=== PATIENT | male | born 1990 | race Caucasian/White ===

== ENCOUNTER 2020-11-04 01:48 | Inpatient (IN) | payer OTHER ==
[2020-11-04] MEDS ORDERED: FAMOTIDINE 20 MG/50 ML IVPB 20 MG/50 ML MG IVPB ONE (03:38)
[2020-11-04] MEDS ORDERED: LIDOCAINE VISCOUS 2% ORAL/TOP 20 ML UNIT-DOSE CUP MM ONE ×2 (03:38)
[2020-11-04] MEDS ORDERED: MAG HYDROX/AL HYDROX/SIMETH 30 ML UNIT-DOSE CUP PO ONE (03:38)
[2020-11-04] MEDS ORDERED: ACETAMINOPHEN 1000 MG/100 ML VIAL (NON FORMULARY) IVPB ONE (03:39)
[2020-11-04] MEDS ORDERED: LIDOCAINE VISCOUS 2% ORAL/TOP 20 ML UNIT-DOSE CUP ONE (04:31)
[2020-11-04] MEDS: SUCRALFATE 1 GM TABLET (FP) PO SCH ×3 (05:01→21:09)
[2020-11-04 05:13] LABS: BASO % 0.4 % (0-2.0); EOS % 0.1 % (0-4.5); HEMATOCRIT 43.2 % (35.4-49); HEMOGLOBIN 14.6 GM/dL (11.7-16.9); LYMPH % 13.4 % (8-40); MCH 28.1 pg (25.7-33.7); MCHC 33.9 g/dl (32.0-35.9); MEAN PLT VOLUME 8.6 fl (7.5-11.1); MONO % 4.6 % (3.8-10.2); NEUT % 81.5 % (42.8-82.8); PLATELET COUNT 263 K/MM3 (134-434); RBC 5.21 M/mm3 (4.00-5.60); RDW 13.4 % (11.9-15.9); WHITE BLOOD COUNT 8.9 K/mm3 (4.0-10.0)
[2020-11-04 05:30] LABS: CHLORIDE 103 mmol/L (98-107); SODIUM 138 mmol/L (136-145)
[2020-11-04 05:32] LABS: ALBUMIN 3.7 g/dl (3.4-5.0); ANION GAP 6 MMOL/L (8-16); CALCIUM 8.8 mg/dL (8.5-10.1); CO2 29 mmol/L (21-32); LIPASE 85 U/L (73-393)
[2020-11-04 05:33] LABS: BLOOD UREA NITROGEN 9.8 mg/dL (7-18); GLUCOSE,RANDOM 111 mg/dL (74-106)
[2020-11-04 05:35] LABS: CREATININE 0.9 mg/dL (0.55-1.3)
[2020-11-04 05:36] LABS: SGOT/AST 227 U/L (15-37)
[2020-11-04 05:37] LABS: BILIRUBIN,TOTAL 3.7 mg/dL (0.2-1); TOT PROT 7.8 g/dl (6.4-8.2)
[2020-11-04 05:38] LABS: ALK PHOS 188 U/L (45-117)
[2020-11-04 05:41] LABS: SGPT/ALT 258 U/L (13-61)
[2020-11-04] MEDS ORDERED: CEFTRIAXONE 1 GM in DEXTROSE 5%-WATER - 50 ML IVPB ONE (09:31)
[2020-11-04] MEDS ORDERED: DEXTROSE 5%-LACTATED RINGERS 1,000 ML IV ONE (10:20)
[2020-11-04] MEDS ORDERED: CEFTRIAXONE 1 GM/50 ML BAG ONE (11:30)
[2020-11-04 13:40] LABS: INR 1.04 (0.83-1.09); PROTHROMBIN TIME (PATIENT) 12.6 SEC (9.7-13.0)
[2020-11-04 13:43] LABS: ACTIVATED PTT 27.1 SECONDS (25.2-36.5)
[2020-11-04] MEDS ORDERED: morphine SULFATE 4 MG/ML VIAL IVPUSH PRN (14:02)
[2020-11-04] MEDS ORDERED: MORPHINE SULFATE 2 MG/ML VIAL IVPUSH PRN (14:02)
[2020-11-04] MEDS: LACTATED RINGERS SOLUTION 1,000 ML IV SCH (15:00)
[2020-11-04] MEDS ORDERED: PANTOPRAZOLE SODIUM 40 MG VIAL IVPUSH ONE (17:35)
[2020-11-04 17:55] LABS: BILIRUBIN,DIRECT 2.3 mg/dL (0.0-0.2)
[2020-11-04 18:02] VITALS: BMI 37.9
[2020-11-04] MEDS ORDERED: PT OWN MED DRAWER 7, Y5N ONE (20:04)
[2020-11-04] MEDS: ACETAMINOPHEN 325 MG TABLET (FP) PO PRN (20:15)
[2020-11-05] MEDS: LACTATED RINGERS SOLUTION 1,000 ML IV SCH ×2 (03:05→14:55)
[2020-11-05 07:48] LABS: BASO % 0.7 % (0-2.0); EOS % 1.6 % (0-4.5); HEMATOCRIT 40.3 % (35.4-49); HEMOGLOBIN 13.5 GM/dL (11.7-16.9); LYMPH % 43.8 % (8-40); MCH 27.8 pg (25.7-33.7); MCHC 33.6 g/dl (32.0-35.9); MEAN CELL VOLUME 82.8 fl (80-96); MEAN PLT VOLUME 8.7 fl (7.5-11.1); MONO % 8.6 % (3.8-10.2); NEUT % 45.3 % (42.8-82.8); PLATELET COUNT 225 K/MM3 (134-434); RBC 4.87 M/mm3 (4.00-5.60); RDW 13.5 % (11.9-15.9); WHITE BLOOD COUNT 4.4 K/mm3 (4.0-10.0)
[2020-11-05 08:37] LABS: ALBUMIN 3.2 g/dl (3.4-5.0); BLOOD UREA NITROGEN 7.5 mg/dL (7-18); CALCIUM 8.4 mg/dL (8.5-10.1)
[2020-11-05 08:38] LABS: MAGNESIUM 2.2 mg/dL (1.8-2.4)
[2020-11-05 08:39] LABS: BILIRUBIN,DIRECT 1.4 mg/dL (0.0-0.2)
[2020-11-05 08:41] LABS: CREATININE 0.8 mg/dL (0.55-1.3)
[2020-11-05 08:42] LABS: BILIRUBIN,TOTAL 2.2 mg/dL (0.2-1); TOT PROT 6.6 g/dl (6.4-8.2)
[2020-11-05] MEDS ORDERED: PT OWN MED DRAWER 7, Y5N ONE ×2 (09:12→09:35)
[2020-11-05] MEDS ORDERED: DEXTROSE 5%-WATER - 50 ML IVPB ONE (09:12)
[2020-11-05] MEDS ORDERED: cefTRIAXone SODIUM 1 GM VIAL ONE (09:12)
[2020-11-05] MEDS: ENOXAPARIN NA (PORCINE) 40 MG/0.4 ML DISP.SYRIN SQ SCH (09:16)
[2020-11-05] MEDS: PANTOPRAZOLE SODIUM 40 MG VIAL IVPUSH SCH (09:16)
[2020-11-05] MEDS: URSODIOL 300 MG CAPSULE PO SCH ×2 (09:16→22:11)
[2020-11-05] MEDS: CEFTRIAXONE 1 GM in DEXTROSE 5%-WATER - 50 ML IVPB SCH (09:16)
[2020-11-05] MEDS: SUCRALFATE 1 GM TABLET (FP) PO SCH ×2 (09:17→22:11)
[2020-11-05] MEDS: ACETAMINOPHEN 325 MG TABLET (FP) PO PRN ×2 (13:34→22:12)
[2020-11-06] MEDS: LACTATED RINGERS SOLUTION 1,000 ML IV SCH ×2 (01:26→21:34)
[2020-11-06] MEDS ORDERED: PT OWN MED DRAWER 7, Y5N ONE ×2 (09:55→21:07)
[2020-11-06] MEDS: ENOXAPARIN NA (PORCINE) 40 MG/0.4 ML DISP.SYRIN SQ SCH (09:59)
[2020-11-06] MEDS: PANTOPRAZOLE SODIUM 40 MG VIAL IVPUSH SCH (09:59)
[2020-11-06] MEDS: SUCRALFATE 1 GM TABLET (FP) PO SCH (09:59)
[2020-11-06] MEDS: URSODIOL 300 MG CAPSULE PO SCH ×2 (10:00→21:34)
[2020-11-06] MEDS ORDERED: DEXTROSE 5%-WATER - 50 ML IVPB ONE (10:16)
[2020-11-06] MEDS ORDERED: cefTRIAXone SODIUM 1 GM VIAL ONE (10:16)
[2020-11-06 10:40] LABS: BILIRUBIN,DIRECT 2.1 mg/dL (0.0-0.2)
[2020-11-06 10:43] LABS: BILIRUBIN,TOTAL 2.8 mg/dL (0.2-1); TOT PROT 6.2 g/dl (6.4-8.2)
[2020-11-06] MEDS: CEFTRIAXONE 1 GM in DEXTROSE 5%-WATER - 50 ML IVPB SCH (12:10)
[2020-11-07 09:23] LABS: HEMATOCRIT 41.1 % (35.4-49); HEMOGLOBIN 13.6 GM/dL (11.7-16.9); MCH 27.5 pg (25.7-33.7); MCHC 33.2 g/dl (32.0-35.9); PLATELET COUNT 230 K/MM3 (134-434); RBC 4.94 M/mm3 (4.00-5.60); RDW 13.8 % (11.9-15.9); WHITE BLOOD COUNT 4.4 K/mm3 (4.0-10.0)
[2020-11-07] MEDS ORDERED: PT OWN MED DRAWER 7, Y5N ONE ×2 (09:41→19:58)
[2020-11-07] MEDS ORDERED: cefTRIAXone SODIUM 1 GM VIAL ONE (09:41)
[2020-11-07] MEDS ORDERED: DEXTROSE 5%-WATER - 50 ML IVPB ONE (09:41)
[2020-11-07 09:44] LABS: ALBUMIN 3.3 g/dl (3.4-5.0); BLOOD UREA NITROGEN 5.4 mg/dL (7-18); CALCIUM 8.7 mg/dL (8.5-10.1)
[2020-11-07 09:47] LABS: CREATININE 0.8 mg/dL (0.55-1.3)
[2020-11-07 09:48] LABS: BILIRUBIN,TOTAL 3.4 mg/dL (0.2-1)
[2020-11-07 09:49] LABS: ALBUMIN 3.2 g/dl (3.4-5.0); TOT PROT 6.9 g/dl (6.4-8.2)
[2020-11-07] MEDS: CEFTRIAXONE 1 GM in DEXTROSE 5%-WATER - 50 ML IVPB SCH (09:50)
[2020-11-07 09:52] LABS: BILIRUBIN,DIRECT 2.6 mg/dL (0.0-0.2)
[2020-11-07 09:54] LABS: TOT PROT 6.9 g/dl (6.4-8.2)
[2020-11-07 09:58] LABS: BILIRUBIN,TOTAL 3.4 mg/dL (0.2-1)
[2020-11-07] MEDS ORDERED: INDOMETHACIN 50 MG RECTAL SUPPOSITORY PR ONE ×2 (10:29→11:47)
[2020-11-07] MEDS: URSODIOL 300 MG CAPSULE PO SCH ×2 (10:30→21:11)
[2020-11-07] MEDS ORDERED: MIDAZOLAM HCL 2 MG/2 ML SINGLE DOSE VIAL ONE (11:22)
[2020-11-07] MEDS ORDERED: IOHEXOL 300 MG/ML INFUS..BTL IJ ONE (12:26)
[2020-11-07] MEDS ORDERED: LACTATED RINGERS SOLUTION 1,000 ML/1,000 ML INFUS.BAG IV SCH ×2 (12:45→19:00)
[2020-11-07 14:07] LABS: HEP B CORE AB, TOT Negative (Negative)
[2020-11-08] MEDS ORDERED: LACTATED RINGERS SOLUTION 1,000 ML/1,000 ML INFUS.BAG IV SCH (03:00)
[2020-11-08 08:19] LABS: HEMATOCRIT 40.6 % (35.4-49); HEMOGLOBIN 13.7 GM/dL (11.7-16.9); MCH 28.1 pg (25.7-33.7); MCHC 33.7 g/dl (32.0-35.9); MEAN CELL VOLUME 83.4 fl (80-96); MEAN PLT VOLUME 9.2 fl (7.5-11.1); PLATELET COUNT 220 K/MM3 (134-434); RBC 4.88 M/mm3 (4.00-5.60); RDW 13.7 % (11.9-15.9); WHITE BLOOD COUNT 6.6 K/mm3 (4.0-10.0)
[2020-11-08 09:15] LABS: BILIRUBIN,DIRECT 0.9 mg/dL (0.0-0.2)
[2020-11-08 09:16] LABS: CALCIUM 8.7 mg/dL (8.5-10.1)
[2020-11-08 09:17] LABS: ALBUMIN 3.2 g/dl (3.4-5.0); BLOOD UREA NITROGEN 6.5 mg/dL (7-18)
[2020-11-08 09:20] LABS: CREATININE 0.7 mg/dL (0.55-1.3)
[2020-11-08 09:21] LABS: BILIRUBIN,TOTAL 1.5 mg/dL (0.2-1)
[2020-11-08 09:22] LABS: TOT PROT 6.6 g/dl (6.4-8.2)
[2020-11-08] MEDS ORDERED: DEXTROSE 5%-WATER - 50 ML IVPB ONE (09:47)
[2020-11-08] MEDS ORDERED: cefTRIAXone SODIUM 1 GM VIAL ONE (09:47)
[2020-11-08] MEDS: CEFTRIAXONE 1 GM in DEXTROSE 5%-WATER - 50 ML IVPB SCH (09:51)
[2020-11-08] MEDS: URSODIOL 300 MG CAPSULE PO SCH ×3 (09:52→22:29)
[2020-11-08] MEDS ORDERED: PT OWN MED DRAWER 7, Y5N ONE (11:39)
[2020-11-08] MEDS: LACTATED RINGERS SOLUTION 1,000 ML/1,000 ML INFUS.BAG IV SCH (12:31)
[2020-11-09] MEDS: LACTATED RINGERS SOLUTION 1,000 ML/1,000 ML INFUS.BAG IV SCH ×4 (04:28→14:40)
[2020-11-09 07:42] LABS: HEMATOCRIT 38.3 % (35.4-49); HEMOGLOBIN 12.9 GM/dL (11.7-16.9); MCH 27.8 pg (25.7-33.7); MCHC 33.6 g/dl (32.0-35.9); MEAN CELL VOLUME 82.7 fl (80-96); PLATELET COUNT 207 K/MM3 (134-434); RBC 4.63 M/mm3 (4.00-5.60); RDW 13.5 % (11.9-15.9); WHITE BLOOD COUNT 4.8 K/mm3 (4.0-10.0)
[2020-11-09 08:08] LABS: CALCIUM 8.5 mg/dL (8.5-10.1)
[2020-11-09 08:09] LABS: ALBUMIN 3.1 g/dl (3.4-5.0); BLOOD UREA NITROGEN 5.2 mg/dL (7-18)
[2020-11-09] MEDS ORDERED: ROCURONIUM BROMIDE 50 MG/5 ML SYRINGE ONE ×2 (08:10→09:38)
[2020-11-09] MEDS ORDERED: DEXAMETHASONE SOD PHOSPHATE 4 MG/1 ML VIAL ONE (08:10)
[2020-11-09] MEDS ORDERED: KETOROLAC TROMETHAMINE 30 MG/1 ML VIAL ONE (08:10)
[2020-11-09] MEDS ORDERED: LIDOCAINE HCL/PF 2% SDV 5ML VIAL ONE (08:11)
[2020-11-09] MEDS ORDERED: MIDAZOLAM HCL 2 MG/2 ML SINGLE DOSE VIAL ONE (08:11)
[2020-11-09] MEDS ORDERED: PROPOFOL 20 ML ONE ×2 (08:11→09:23)
[2020-11-09 08:12] LABS: CREATININE 0.7 mg/dL (0.55-1.3)
[2020-11-09 08:14] LABS: BILIRUBIN,TOTAL 1.2 mg/dL (0.2-1); TOT PROT 6.3 g/dl (6.4-8.2)
[2020-11-09] MEDS ORDERED: BUPIVACAINE HCL/PF 0.5% (5MG/ML) 10 ML VIAL ONE (08:38)
[2020-11-09] MEDS ORDERED: ceFAZolin 2 GRAM PREMIX BAG IVPB ONE (09:19)
[2020-11-09] MEDS ORDERED: LIDOCAINE HCL 1%, 10 MG/ML (20ML VIAL) ONE (09:32)
[2020-11-09] MEDS ORDERED: BUPIVACAINE HCL 50 ML ONE ×2 (09:35→09:38)
[2020-11-09] MEDS: CEFTRIAXONE 1 GM in DEXTROSE 5%-WATER - 50 ML IVPB SCH (10:00)
[2020-11-09] MEDS ORDERED: NEOSTIGMINE METHYLSULFATE 0.5 MG/ML - 10 ML MDV ONE (10:17)
[2020-11-09] MEDS ORDERED: GLYCOPYRROLATE 0.2 MG/1 ML VIAL ONE (10:17)
[2020-11-09] MEDS ORDERED: cefTRIAXone SODIUM 1 GM VIAL ONE (10:52)
[2020-11-09] MEDS ORDERED: DEXTROSE 5%-WATER - 50 ML IVPB ONE (10:52)
[2020-11-09] MEDS ORDERED: cefTRIAXone SODIUM 1 GM VIAL IVPB ONE (11:00)
[2020-11-09] MEDS: URSODIOL 300 MG CAPSULE PO SCH (11:21)
[2020-11-09] MEDS ORDERED: ACETAMINOPHEN 1000 MG/100 ML VIAL (NON FORMULARY) IVPB ONE (11:49)
[2020-11-09] MEDS ORDERED: ONDANSETRON 4 MG/2 ML VIAL IVPUSH PRN (11:52)
[2020-11-09] MEDS ORDERED: oxyCODONE HCL 5 MG TABLET PO PRN ×2 (11:52)
[2020-11-09] MEDS ORDERED: ACETAMINOPHEN INJECTION 100 ML IVPB ONE (18:34)
[2020-11-10 05:50] VITALS: BP 120/65; PULSE 74; TEMP 98.2
[2020-11-10 07:17] LABS: HEMATOCRIT 35.8 % (35.4-49); HEMOGLOBIN 12.1 GM/dL (11.7-16.9); MCH 28.1 pg (25.7-33.7); MCHC 33.7 g/dl (32.0-35.9); MEAN CELL VOLUME 83.4 fl (80-96); MEAN PLT VOLUME 9.2 fl (7.5-11.1); PLATELET COUNT 187 K/MM3 (134-434); RDW 13.4 % (11.9-15.9); WHITE BLOOD COUNT 6.8 K/mm3 (4.0-10.0)
[2020-11-10 07:42] LABS: ALBUMIN 2.7 g/dl (3.4-5.0); BLOOD UREA NITROGEN 6.9 mg/dL (7-18); CALCIUM 8.1 mg/dL (8.5-10.1)
[2020-11-10 07:45] LABS: CREATININE 0.7 mg/dL (0.55-1.3)
[2020-11-10 07:47] LABS: BILIRUBIN,TOTAL 0.9 mg/dL (0.2-1); TOT PROT 5.8 g/dl (6.4-8.2)
[2020-11-10] MEDS ORDERED: cefTRIAXone SODIUM 1 GM VIAL ONE (09:50)
[2020-11-10] MEDS ORDERED: DEXTROSE 5%-WATER - 50 ML IVPB ONE (09:50)
[2020-11-10] MEDS ORDERED: ENOXAPARIN NA (PORCINE) 40 MG/0.4 ML DISP.SYRIN SQ SCH (10:00)
[2020-11-10] MEDS: LACTATED RINGERS SOLUTION 1,000 ML/1,000 ML INFUS.BAG IV SCH (10:00)
[2020-11-10] MEDS ORDERED: CEFTRIAXONE 1 GM in DEXTROSE 5%-WATER - 50 ML IVPB SCH (10:00)
== END 2020-11-10 15:54 | disposition home or self-care (01) | DRG 263 ==
LOC: JER 01:48 → JERBED 09:11 → J8W 18:08
PROVIDERS: ADMIT Family Medicine; ATTEND Internal Medicine
PROC: 0FC98ZZ Extirpation of Matter from Common Bile Duct, Via Natural or Artificial Opening Endoscopic (ICD-10-PCS; 2020-11-07)
PROC: BF10YZZ Fluoroscopy of Bile Ducts using Other Contrast (ICD-10-PCS; 2020-11-07)
PROC: 0FT44ZZ Resection of Gallbladder, Percutaneous Endoscopic Approach (ICD-10-PCS; principal; 2020-11-09 09:00)
DX: K80.01 Calculus of gallbladder with acute cholecystitis with obstruction (principal); R74.01 Elevation of levels of liver transaminase levels; Z68.38 Body mass index [BMI] 38.0-38.9, adult; E66.9 Obesity, unspecified; K21.9 Gastro-esophageal reflux disease without esophagitis; R73.9 Hyperglycemia, unspecified; R11.2 Nausea with vomiting, unspecified; E80.6 Other disorders of bilirubin metabolism
CPT/HCPCS: 36415; 74181-TC; 76000-TC-FY; 76705-TC; 80048; 80053; 80076; 82150; 82248; 83036; 83690; 83735; 84484; 85025; 85027; 85610; 85730; 86140; 86704; 86706; 86707; 86708; 86709; 86850; 86900; 86901; 87340; 87522; 88304-TC; 93005; 93010; 94010; 94760; 99285-25; C9803; J0131; U0003; U0005